=== PATIENT | male | born 1960 | race Caucasian/White ===

== ENCOUNTER 2017-02-01 19:24 | Emergency (ER) | payer OTHER ==
[~2017-02-01] VITALS: Ht 180.3 cm; Wt 115.7 kg
[~2017-02-01 19:24] MED LIST: ASPI81TAEC PO; ATOR1TAB19 PO; CVS20TAB PO; FISH1000 PO; GLIP5TAB8 PO; HYDR-3713 PO; INDE80CA PO; LISI-538 PO; METF500T PO; OMEP40CA2 PO; PROP120C PO; PROP60TA14 PO; REME30TA PO; SYMB16INH INH
[2017-02-01] MEDS ORDERED: DIGOXIN 0.25 MG TAB PO ONE (20:45)
[2017-02-01] MEDS ORDERED: DIGO0.259 PO (20:49)
[2017-02-01 21:01] VITALS: BP 162/78
--- NOTE | 2017-02-01 21:13 | ECGEPIP ---
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
== END 2017-02-01 21:08 | disposition home or self-care (01) ==
LOC: EDBD 19:24 → M ED 20:22
DX: I48.91 Unspecified atrial fibrillation (principal); E11.9 Type 2 diabetes mellitus without complications; I10 Essential (primary) hypertension; K21.9 Gastro-esophageal reflux disease without esophagitis; Z87.442 Personal history of urinary calculi; F17.200 Nicotine dependence, unspecified, uncomplicated; Z79.82 Long term (current) use of aspirin; Z79.899 Other long term (current) drug therapy; Z79.84 Long term (current) use of oral hypoglycemic drugs; Z88.5 Allergy status to narcotic agent

== ENCOUNTER → 2017-09-25 | Outpatient (REF) ==
[~2017-09-25] MED LIST changes: +DIGO0.259 PO; -METF500T PO; +METF500T13 PO
--- NOTE | 2017-09-25 11:46 | REP ---
LUMBAR SPINE, THREE VIEWS: HISTORY: Degenerative disc disease. There is no acute fracture. The L3-4 through L5-S1 intervertebral discs are decreased in height consistent with disc degeneration. Osteophytes are present on L4 and 5. There are 5 mm of retrolisthesis of L5 on S1. IMPRESSION: Degenerative change as described above. Signed by Efrain Tamez MD 09/25/2017 11:50 A
== END ==
LOC: M SMT 10:01
PROVIDERS: ATTEND Internal Medicine
DX: M51.36 Other intervertebral disc degeneration, lumbar region (principal)

== ENCOUNTER 2018-05-27 11:49 | Day surgery (SDC) | payer OTHER ==
[2018-05-27] MEDS: NS 1,000 ML IV (12:15)
[2018-05-27] MEDS ORDERED: LIDOCAINE 2% INJ 100 MG/5 ML SDV (FOR ANES.) As Ordered ×2 (13:47→13:57)
[2018-05-27] MEDS ORDERED: PROPOFOL 200 MG/20 ML VIAL As Ordered (13:47)
== END 2018-05-27 14:24 | disposition home or self-care (01) ==
LOC: M OPP 11:49
DX: K22.70 Barrett's esophagus without dysplasia (principal); K22.8 Other specified diseases of esophagus; K44.9 Diaphragmatic hernia without obstruction or gangrene; I10 Essential (primary) hypertension; E78.5 Hyperlipidemia, unspecified; E11.9 Type 2 diabetes mellitus without complications; M19.90 Unspecified osteoarthritis, unspecified site; M79.7 Fibromyalgia; F41.9 Anxiety disorder, unspecified; F32.9 Major depressive disorder, single episode, unspecified; G43.909 Migraine, unspecified, not intractable, without status migrainosus; J45.909 Unspecified asthma, uncomplicated; G47.8 Other sleep disorders; F17.210 Nicotine dependence, cigarettes, uncomplicated; Z88.5 Allergy status to narcotic agent; Z79.82 Long term (current) use of aspirin; Z79.899 Other long term (current) drug therapy; Z79.84 Long term (current) use of oral hypoglycemic drugs; Z80.7 Family history of other malignant neoplasms of lymphoid, hematopoietic and related tissues
CPT/HCPCS: 43239

== ENCOUNTER 2019-03-14 07:36 | Emergency (ER) | payer OTHER ==
[~2019-03-14] VITALS: Ht 180.3 cm; Wt 126.8 kg
[~2019-03-14 07:36] MED LIST changes: +ATOR1TAB21 PO; -CVS20TAB PO; -INDE80CA PO; +INDE80CA9 PO; +KLON0.5T PO; +LISI40TA PO; +OMEP20CA3 PO; +OMEP20TA9 PO; +PROP40TA62 PO
[2019-03-14] MEDS ORDERED: PROP60TA14 PO (07:47)
[2019-03-14 08:03] LABS: BASO # 0.1 10^3/uL (0.0-0.2); BASO % 0.5 % (0.0-1.0); EOS # 0.2 10^3/uL (0.0-0.50); EOS % 1.9 % (0.0-3.0); HEMATOCRIT 45.8 % (42.0-52.0); HEMOGLOBIN 15.7 g/dl (13.5-17.5); LYMPH # 3.1 10^3/uL (1.5-4.5); LYMPH % 25.1 % (24.0-44.0); MEAN CORPUSCULAR HEMOGLOBIN 30.7 pg (27.0-33.0); MEAN CORPUSCULAR HGB CONC 34.3 g/dl (32.0-36.5); MEAN CORPUSCULAR VOLUME 89.5 fl (80.0-96.0); MONO # 0.9 10^3/uL (0.0-0.8); MONO % 7.3 % (0.0-5.0); NEUTROPHILS # 7.9 10^3/uL (1.8-7.7); NEUTROPHILS % 64.8 % (36.0-66.0); PLATELET COUNT, AUTOMATED 194 10^3/uL (150-450); RED BLOOD COUNT 5.12 10^6/uL (4.30-6.10); WHITE BLOOD COUNT 12.2 10^3/uL (4.0-10.0)
[2019-03-14 08:13] LABS: INR 0.91; PROTHROMBIN TIME 12.3 SECONDS (12.1-14.4)
[2019-03-14 08:14] LABS: PARTIAL THROMBOPLASTIN TIME 28.1 SECONDS (25.4-37.6)
--- NOTE | 2019-03-14 08:25 | REP ---
Clinical: Acute chest pain . Comparison: 07/20/2014 . Findings: The mediastinum and cardiac silhouette are stable and within normal limits for portable technique. The lung tripathi are clear without acute consolidation, effusion, or pneumothorax. Skeletal structures are intact. Impression: No acute cardiopulmonary process appreciated. Electronically Signed by Bolivar Francisco MD 03/14/2019 08:15 A
[2019-03-14 08:37] LABS: ALBUMIN 3.9 GM/DL (3.2-5.2); ALT/SGPT 58 U/L (12-78); BILIRUBIN,DIRECT < 0.1 MG/DL (0.0-0.2); BILIRUBIN,TOTAL 0.4 MG/DL (0.2-1.0); BLOOD UREA NITROGEN 12 MG/DL (7-18); CALCIUM LEVEL 8.6 MG/DL (8.5-10.1); CARBON DIOXIDE LEVEL 30 MEQ/L (21-32); CHLORIDE LEVEL 102 MEQ/L (98-107); CK-MB VALUE MASS < 1.0 NG/ML (<3.6); CPK CREATINE PHOSPHOKINASE 95 U/L (39-308); CREATININE FOR GFR 1.16 MG/DL (0.70-1.30); FREE T4 1.19 NG/DL (0.76-1.46); GLOMERULAR FILTRATION RATE > 60.0 (>56); GLUCOSE, FASTING 218 MG/DL (70-100); LIPASE 168 U/L (73-393); MB/CK RELATIVE INDEX 1.05 (< OR =4); POTASSIUM SERUM 3.6 MEQ/L (3.5-5.1); SODIUM LEVEL 138 MEQ/L (136-145); TOTAL PROTEIN 7.8 GM/DL (6.4-8.2); TROPONIN I < 0.02 NG/ML (< 0.10)
[2019-03-14] MEDS ORDERED: ISOVUE-370 76% 100ML VIAL (Q9967) As Ordered ONE (09:15)
--- NOTE | 2019-03-14 09:47 | ECGEPIP ---
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
--- NOTE | 2019-03-14 10:13 | REP ---
CT ANGIOGRAM CHEST: TECHNIQUE: Axial contrast enhanced images from the thoracic inlet to the upper abdomen using 100 mL Isovue 370 intravenous contrast material with multiplanar reformations. There is no CT evidence of pulmonary embolism. There is no thoracic aortic aneurysm or dissection. The heart is slightly enlarged. There are mild atherosclerotic calcifications of the thoracic aorta. There is no evidence of mediastinal, hilar or chest wall lymphadenopathy. There is no pleural or pericardial effusion. The patient has had a prior cholecystectomy. There is calcified granuloma in the right middle lobe posteriorly. There are mild fibro atelectatic changes in the lingula. IMPRESSION: No CT evidence of pulmonary embolism or aortic dissection. Electronically Signed by James Cates MD 03/14/2019 01:31 P
--- NOTE | 2019-03-14 10:32 | REP ---
CT ABDOMEN AND PELVIS WITH IV CONTRAST: TECHNIQUE: Axial contrast enhanced images from the lung bases to the pubic symphysis using 100 mL Isovue 370 intravenous contrast material with multiplanar reformations. The liver demonstrates no mass. The patient has had a prior cholecystectomy. I do not see evidence of biliary dilatation. The spleen, adrenals, and pancreas are unremarkable. There is no hydronephrosis bilaterally. There is cortical scarring of the lateral left kidney. There a small cyst in the medial right kidney measuring about 1.2 cm in maximum diameter. There is mild atherosclerotic calcification of the abdominal aorta without aneurysm. I see no adenopathy. There is no free air or free fluid. There is no bowel wall thickening. There is sigmoid diverticulosis without acute diverticulitis. There is no appendicitis. No pelvic mass is seen. Urinary bladder is unremarkable. Prostate is mildly enlarged. There appears to be small left inguinal hernia-containing fat. IMPRESSION: Status post cholecystectomy. Sigmoid diverticulosis. No acute findings. Small left inguinal hernia contains fat. Electronically Signed by James Cates MD 03/14/2019 01:31 P
[2019-03-14 12:24] LABS: CK-MB VALUE MASS < 1.0 NG/ML (<3.6); CPK CREATINE PHOSPHOKINASE 80 U/L (39-308); MB/CK RELATIVE INDEX 1.25 (< OR =4); TROPONIN I < 0.02 NG/ML (< 0.10)
[2019-03-14 12:59] VITALS: BP 149/91
--- NOTE | 2019-03-14 19:47 | ECGEPIP ---
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
== END 2019-03-14 13:04 | disposition home or self-care (01) ==
LOC: M ED 07:36
DX: R07.89 Other chest pain (principal); R10.9 Unspecified abdominal pain; E11.9 Type 2 diabetes mellitus without complications; I10 Essential (primary) hypertension; E78.5 Hyperlipidemia, unspecified
CPT/HCPCS: 71045; 71275; 74177; 80048; 80076; 82550; 82553; 83690; 84439; 84443; 84484; 85025; 85610; 85730; 93005; 93041; 94760; 99285; Q9967